=== PATIENT | male | born 1960 | race Caucasian/White ===

== ENCOUNTER 2017-09-20 12:15 | Observation (INO) ==
--- NOTE | 2017-09-20 12:25 | Emergency Department Note ---
Disposition Clinical Impression: Chest pain Qualifiers: Chest pain type: precordial pain Qualified Code(s): R07.2 - Precordial pain Disposition: Admitted As Inpatient Condition: Good Referrals: Ronny Haynes MD [Primary Care Provider] - Forms: ED Satisfaction Letter Time of Disposition: 16:20 Chest Pain HPI - General Chief Complaint: ED Chest Pain Stated Complaint: nausea,chest pressure, cold sweats Time Seen by Provider: 09/20/17 12:20 Source: patient Mode of arrival: EMS Limitations: no limitations Vital Signs Reviewed: Yes Nursing Notes Reviewed: Yes - History of Present Illness Pt complaint: chest pain Onset (ago): hour(s) (2.5) Time: 09:30 Duration: constant Onset: during rest Pain Location: substernal Severity scale (1-10): 2 Quality: tightness Pain Radiation: none Improves with: nothing Worsens with: nothing Associated symptoms: Reports: nausea Treatments prior to arrival chest pain: none - Related Data Home Medications Medication Instructions Recorded Confirmed Aspirin 81 mg PO DAILY 04/11/16 09/20/17 Albuterol Sulfate [Proair Hfa] 2 puff IH Q4H PRN 02/08/17 09/20/17 Atorvastatin Calcium [Lipitor] 80 mg PO HS 02/08/17 09/20/17 Cyclobenzaprine [Flexeril] 10 mg PO TID PRN 02/08/17 09/20/17 HYDROcodone/Acet 5/325 mg [[place] 1 tab PO BID PRN 02/08/17 09/20/17 5-325 mg] Lisinopril/Hydrochlorothiazide 1 each PO DAILY 02/08/17 09/20/17 [Zestoretic 10-12.5 mg Tablet] [place]-3/Dha/Epa/Fish Oil [Fish Oil 1,000 mg PO BID 02/08/17 09/20/17 1,000 mg Softgel] Pantoprazole Sodium 40 mg PO DAILY 02/08/17 09/20/17 hydrOXYzine HCl [Hydroxyzine HCl] 12.5 - 50 mg PO Q6H PRN 02/08/17 09/20/17 traZODone [TraZODone] 50 mg PO HS PRN 02/08/17 09/20/17 Allergies Allergy/AdvReac Type Severity Reaction Status Date / Time No Known Allergies Allergy Verified 09/20/17 12:17 All systems ED: reviewed and negative except as stated. Constitutional: Denies: fever, chills Eyes: Denies: vision change ENT ED: Denies: ear pain, throat pain Cardiovascular: Reports: chest pain. Denies: palpitations Respiratory: Denies: cough, dyspnea Gastrointestinal: Reports: nausea. Denies: abdominal pain, vomiting, diarrhea Musculoskeletal: Denies: back pain, neck pain Integumentary: Denies: rash Neurological: Denies: weakness, numbness, paresthesias Chest Pain PMH - Past Medical History Medical history: Reports: arthritis, GERD, hyperlipidemia, hypertension Surgical history: Reports: cholecystectomy, knee replacement, orthopedic, other Psychiatric history: Reports: anxiety, panic disorder, PTSD - Social History Smoking Status: Never smoker Alcohol use: Reports: none Drug use: Reports: none Physical Exam - General Limitations: no limitations General appearance: alert, in no apparent distress - Head Head exam: atraumatic, normocephalic - Eye Eye exam: Present: PERRL, EOMI. Absent: scleral icterus, conjunctival injection - ENT ENT exam: normal oropharynx, TM's normal bilaterally - Neck Neck exam: Present: normal inspection, full ROM, trachea midline. Absent: tenderness, lymphadenopathy, thyromegaly - Chest Chest inspection: Present: normal inspection, symmetric chest wall rise. Absent : tenderness - Respiratory Respiratory exam: Present: normal lung sounds bilaterally. Absent: respiratory distress, wheezes - Cardiovascular Cardiovascular exam: Present: regular rate, normal rhythm, normal heart sounds - Abdominal Exam Abdominal exam: Present: soft, Non-Tender, normal bowel sounds. Absent: organomegaly, mass - Extremities Exam Extremities exam: Present: normal inspection, full ROM, normal capillary refill. Absent: tenderness, pedal edema, calf tenderness - Neurological Exam Neurological exam: Present: alert, oriented X3, normal gait - Psychiatric Psychiatric exam: Present: normal affect, normal mood - Skin Skin exam: Present: warm, dry, intact, normal color. Absent: rash Course - Reevaluation(s) Reevaluation #1: Remained pain-free in the emergency department. Discussed with Dr. Martinez. He accepts for observation admission. Time: 16:19 Vital Signs Temperature 97.2 F L 09/20/17 12:20 Pulse Rate 65 09/20/17 12:20 Respiratory Rate 18 09/20/17 12:20 Blood Pressure 152/80 09/20/17 12:20 O2 Sat by Pulse Oximetry 94 09/20/17 12:20 Temperature 97.2 F L 09/20/17 12:20 Pulse Rate 87 09/20/17 15:35 Respiratory Rate 18 09/20/17 15:35 Blood Pressure 154/90 09/20/17 15:35 O2 Sat by Pulse Oximetry 95 09/20/17 15:35 Oxygen Delivery Oxygen Delivery Room Air Chest Pain - MDM Narrative Medical decision making narrative: Differential includes but is not limited to chest wall pain, angina, myocardial infarction, esophageal spasm, GERD, pneumothorax, aortic dissection. Clinically his pain is suspicious for angina. There is no evidence of N -STEMI or STEMI. He is not tachycardic, tachypnea or hypoxic. I have a low index suspicion for pulmonary embolus. There is no evidence of pneumonia or pneumothorax. He will be admitted to an observation bed for serial enzymes and possible stress testing as the hospitalist. - Lab Data Lab results reviewed: Yes I reviewed the patient's lab results. Result diagrams: 09/20/17 12:56 09/20/17 12:56 Lab Results 09/20/17 09/20/17 09/20/17 Range/Units 12:56 12:56 12:56 WBC 7.3 (4.3-11.1) K/mcL RBC 4.90 (4.19-5.50) M/mcL Hgb 15.4 (12.9-16.9) g/dL Hct 44.8 (37.5-50.1) % MCV 91.4 (83.0-100.0) fL MCH 31.4 (28.0-33.3) pg MCHC 34.4 (31.6-35.5) g/dL RDW 12.8 (11.5-14.5) % Plt Count 146 (140-400) K/mcL MPV 10.1 (9.4-12.4) fL Immature Gran % 0.3 (0-4) % Seg Neutrophils % 86.7 % Lymphocytes % 8.9 % Monocytes % 3.5 % Eosinophils % 0.3 % Basophils % 0.3 % Neutrophils # 6.4 (1.6-8.9) K/mcL Lymphocytes # 0.7 (0.6-4.6) K/mcL Monocytes # 0.3 (0.0-1.3) K/mcL Eosinophils # 0.0 (0.0-0.6) K/mcL Basophils # 0.0 (0.0-0.2) K/mcL Sodium 140 (136-145) mEq/L Potassium 3.8 (3.5-4.5) mEq/L Chloride 102 (98-109) mEq/L Carbon Dioxide 27 (19-29) mEq/L BUN 15 (8-26) mg/dL Creatinine 1.08 (0.72-1.25) mg/dL Est GFR ( Amer) > 60 (> 60) Est GFR (Non-Af Amer) > 60 (> 60) BUN/Creatinine Ratio 14 (6-26) Glucose 116 H (70-99) mg/dL Calculated Osmolality 292 (280-300) Calcium 9.3 (8.6-10.8) mg/dL Total Bilirubin 1.0 (0.2-1.2) mg/dL AST 29 (5-34) Units/L ALT 30 (0-55) Units/L Alkaline Phosphatase 84 (38-126) Units/L Troponin I 0.01 (0-0.03) ng/mL B-Natriuretic Peptide (0-100) pg/mL Serum Total Protein 7.4 (6.0-8.3) g/dL Albumin 4.0 (3.5-5.0) g/dL Globulin 3.4 (2.4-3.5) g/dL Albumin/Globulin Ratio 1.2 (1.1-2.2) 09/20/17 09/20/17 Range/Units 12:56 15:25 WBC (4.3-11.1) K/mcL RBC (4.19-5.50) M/mcL Hgb (12.9-16.9) g/dL Hct (37.5-50.1) % MCV (83.0-100.0) fL MCH (28.0-33.3) pg MCHC (31.6-35.5) g/dL RDW (11.5-14.5) % Plt Count (140-400) K/mcL MPV (9.4-12.4) fL Immature Gran % (0-4) % Seg Neutrophils % % Lymphocytes % % Monocytes % % Eosinophils % % Basophils % % Neutrophils # (1.6-8.9) K/mcL Lymphocytes # (0.6-4.6) K/mcL Monocytes # (0.0-1.3) K/mcL Eosinophils # (0.0-0.6) K/mcL Basophils # (0.0-0.2) K/mcL Sodium (136-145) mEq/L Potassium (3.5-4.5) mEq/L Chloride (98-109) mEq/L Carbon Dioxide (19-29) mEq/L BUN (8-26) mg/dL Creatinine (0.72-1.25) mg/dL Est GFR ( Amer) (> 60) Est GFR (Non-Af Amer) (> 60) BUN/Creatinine Ratio (6-26) Glucose (70-99) mg/dL Calculated Osmolality (280-300) Calcium (8.6-10.8) mg/dL Total Bilirubin (0.2-1.2) mg/dL AST (5-34) Units/L ALT (0-55) Units/L Alkaline Phosphatase (38-126) Units/L Troponin I 0.01 (0-0.03) ng/mL B-Natriuretic Peptide < 10 (0-100) pg/mL Serum Total Protein (6.0-8.3) g/dL Albumin (3.5-5.0) g/dL Globulin (2.4-3.5) g/dL Albumin/Globulin Ratio (1.1-2.2) - Radiology Data Radiology results reviewed: Yes I reviewed the patient's radiology results. Impressions Chest X-Ray 09/20/17 12:22 IMPRESSION: Slight to mild bibasilar atelectasis or less likely pneumonia. No other significant abnormality. D/ / Elton Cota MD / Elton Cota MD Interpreting Provider: Elton Cota MD - EKG Data EKG attestation: Yes I reviewed and interpreted this EKG. EKG results narrative: Sinus rhythm, rate of 63, interventricular conduction delay, no acute ST-T wave changes. Rhythm strip shows sinus rhythm with rate of 63, KS interval 200 ms, QRS 129 ms with no other ectopy is interpreted by me. Comparison date/, no significant change. 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
[2017-09-20] MEDS ORDERED: Aspirin 81 MG TAB.CHEW PO ONE (12:37)
[2017-09-20 13:04] LABS: Basophils % 0.3 %; Eosinophils % 0.3 %; Hematocrit 44.8 % (37.5-50.1); Hemoglobin 15.4 g/dL (12.9-16.9); Immature Granulocytes % 0.3 % (0-4); Lymphocytes # 0.7 K/mcL (0.6-4.6); Lymphocytes % 8.9 %; Mean Corpuscular HGB Conc 34.4 g/dL (31.6-35.5); Mean Corpuscular Hemoglobin 31.4 pg (28.0-33.3); Mean Corpuscular Volume 91.4 fL (83.0-100.0); Mean Platelet Volume 10.1 fL (9.4-12.4); Monocytes # 0.3 K/mcL (0.0-1.3); Monocytes % 3.5 %; Neutrophils # 6.4 K/mcL (1.6-8.9); Platelet Count 146 K/mcL (140-400); Red Cell Distribution Width 12.8 % (11.5-14.5); Segmented Neutrophils % 86.7 %
[2017-09-20 13:22] LABS: Alanine Aminotransferase 30 Units/L (0-55); Albumin/Globulin Ratio 1.2 (1.1-2.2); Alkaline Phosphatase 84 Units/L (38-126); Aspartate Amino Transferase 29 Units/L (5-34); BUN/Creatinine Ratio 14 (6-26); Blood Urea Nitrogen 15 mg/dL (8-26); Calcium 9.3 mg/dL (8.6-10.8); Carbon Dioxide 27 mEq/L (19-29); Chloride 102 mEq/L (98-109); Globulin 3.4 g/dL (2.4-3.5); Glucose 116 mg/dL (70-99); Osmolality,Calculated 292 (280-300); Potassium 3.8 mEq/L (3.5-4.5); Sodium 140 mEq/L (136-145); Total Protein 7.4 g/dL (6.0-8.3); eGFR For African Americans > 60 (> 60); eGFR For Non-African Americans > 60 (> 60)
[2017-09-20] MEDS ORDERED: Acetaminophen 325 MG TABLET PO PRN (17:09)
[2017-09-20] MEDS ORDERED: hydrOXYzine pamoate 25 MG CAPSULE PO PRN (17:09)
[2017-09-20] MEDS ORDERED: *HR* HYDROcodone/Acet 5/325 mg TABLET PO PRN (17:09)
[2017-09-20] MEDS ORDERED: *HR* Morphine 2 MG/ML SYRINGE IVP PRN (17:09)
[2017-09-20] MEDS ORDERED: Ondansetron 4 MG/2 ML VIAL IVP PRN (17:09)
[2017-09-20] MEDS ORDERED: Naloxone 0.4 MG/ML INJ IVP PRN (17:09)
[2017-09-20] MEDS ORDERED: *HR* OxyCODONE/APAP 5/325 TABLET PO PRN (17:49)
[2017-09-20] MEDS ORDERED: traZODone 50 MG TABLET PO PRN (21:00)
[2017-09-21] MEDS ORDERED: *HR* Enoxaparin 40 MG/0.4 ML SYRINGE SQ SCH (06:00)
[2017-09-21 06:47] VITALS: BP 145/92
[2017-09-21] MEDS ORDERED: Aspirin 81 MG TAB.CHEW PO SCH (09:00)
--- NOTE | 2017-09-21 11:29 | Internal Med History&Physical ---
Date of Encounter: 09/21/17 Time of Encounter: 10:55 Assessment and Plan (1) Chest pain Current visit: Yes Status: Acute Repeat cardiac enzymes were ordered through emergency room. Further workup will be done as needed. Qualifiers: Chest pain type: precordial pain Qualified Code(s): R07.2 - Precordial pain Internal Medicine - H&P: HPI Chief complaint: Chest discomfort Admitted From: Home Plans for Post Hospital Care: Home History of present illness: Mr. Crenshaw is a 57 year old male who came to emergency room stating he had onset of discomfort in his chest approximately 9:30 AM while at leisure. He describes the discomfort as a slight pressure sensation in his right chest that seemed to radiate toward midline. He had cold diaphoresis and a single episode of vomiting. He went to the health center at his place of work and was referred to emergency room. He was evaluated and felt deserve admission for ongoing care needs. He states his chest discomfort has resolved now and he feels back to his baseline and stable for discharge home. He reports a previous similar episode approximately 4 years ago and was told it was caused by PACs and/or PVCs. He does not get angina or anginal equivalents on exertion including splitting wood. He had a heart catheter 02/27/2013 at [facility] which showed LMCA free of disease, LAD with 20% stenosis in the proximal region 20% stenosis in the mid region, 30% stenosis in the mid circumflex, and 20% stenosis in the proximal RCA and another 20% stenosis lesion in the mid RCA. LVEF was 60%. He denies heart failure DVT or pulmonary embolus. He has history of hypertension and states blood pressure readings at home are typically 120-140 systolic and 75-85 diastolic. Past Med Surg Social Fam HX - Past Medical History Medical history: arthritis, GERD, hyperlipidemia, hypertension Psychiatric history: anxiety, panic disorder, PTSD - Past Surgical History Surgical History: cholecystectomy, knee replacement, orthopedic, other - Social History Smoking Status: Never smoker Smokeless Tobacco Status: Yes Alcohol use: none Drug use: none Internal Medicine - H&P: Meds Aspirin 81 mg PO DAILY 04/11/16 [History] Albuterol Sulfate [Proair Hfa] 2 puff IH Q4H PRN 02/08/17 [History] Atorvastatin Calcium [Lipitor] 80 mg PO HS 02/08/17 [History] Cyclobenzaprine [Flexeril] 10 mg PO TID PRN 02/08/17 [History] Lisinopril/Hydrochlorothiazide [Zestoretic 10-12.5 mg Tablet] 1 each PO DAILY [History] [place]-3/Dha/Epa/Fish Oil [Fish Oil 1,000 mg Softgel] 1,000 mg PO BID 02/08/17 [ History] Pantoprazole Sodium 40 mg PO DAILY 02/08/17 [History] hydrOXYzine HCl [Hydroxyzine HCl] 12.5 - 50 mg PO Q6H PRN 02/08/17 [History] traZODone [TraZODone] 50 mg PO HS PRN 02/08/17 [History] 3 Allergy/AdvReac Type Severity Reaction Status Date / Time No Known Allergies Allergy Verified 09/20/17 12:17 All Systems PM: A 10-system review of systems was performed and is negative for pertinent findings except as documented above in the HPI. Review of systems: Gen.: He states his weight has fluctuated approximately 10 pounds in the past year Cardiovascular: As per history of present illness Respiratory: He is a lifelong nonsmoker. He has occasional bronchitis. He has YAS and uses CPAP at bedtime GI: He has had cholecystectomy. He has been diagnosed with NAFLD. He uses occasional alcohol. He denies disorders of his exocrine pancreas : He denies hematuria dysuria or kidney stones Neurologic: He denies large distribution strokes or seizures. Endocrine: He has hyperlipidemia but denies diabetes or thyroid disease Hematology/oncology: Denies blood disorders cancers or anemia Psychiatric: He has anxiety and PTSD [place] skeletal: He has DJD. He has had multiple fractures. He has T1-T3 compression fractures in the past. He had left shoulder surgery and has had left knee replacement. - Constitutional Vitals: Temp Pulse Resp BP Pulse Ox 98.3 F 72 16 145/92 97 09/21/17 06:43 09/21/17 06:43 09/21/17 06:43 09/21/17 06:43 09/21/17 06:43 Exam: Gen.: He is a well developed well-nourished male who appears in no acute distress at present time HEENT: Head is atraumatic and normocephalic. Eyes: EOMI. There is no scleral icterus. Mouth: Mucosa is moist. Neck: Supple and nontender. There is no thyromegaly or adenopathy noted. Heart: Regular without murmurs gallops or ectopics Lungs: No wheezes or crackles are heard. Chest: He is not tender in his chest wall to palpation Abdomen: Soft and nontender. No masses or guarding are noted. Extremities: There is no cyanosis edema or clubbing noted. Dorsalis pedis and posttibial pulses are 1-2 over 2 bilaterally. Neurologic: Mental status: He is talkative and a good historian. Cranial nerves : Smile is symmetric. Forehead wrinkles bilaterally. Tongue protrudes midline. EOMI. Motor: There is no pronator drift. Cerebellar: Finger to nose intact bilaterally. Skin: Warm and dry Internal Med - H&P Results - Labs CBC & Chem 7: 09/20/17 12:56 09/20/17 12:56 Labs: Cardiac Enzymes 09/20/17 09/21/17 Range/Units 21:31 04:18 Troponin I 0.00 0.01 (0-0.03) ng/mL
--- NOTE | 2017-09-21 11:40 | Discharge Summary ---
Date of Encounter: 09/21/17 Time of Encounter: 10:55 - Discharge Diagnosis (1) Chest pain Priority: Primary Status: Resolved Qualifiers: Chest pain type: precordial pain Qualified Code(s): R07.2 - Precordial pain - Discharge Medications Prescriptions: Nitroglycerin [Nitrostat] 0.4 mg SL Q5M PRN #1 vial PRN Reason: Chest Pain Home Medications: Aspirin 81 mg PO DAILY 04/11/16 [History] Albuterol Sulfate [Proair Hfa] 2 puff IH Q4H PRN 02/08/17 [History] Atorvastatin Calcium [Lipitor] 80 mg PO HS 02/08/17 [History] Cyclobenzaprine [Flexeril] 10 mg PO TID PRN 02/08/17 [History] Lisinopril/Hydrochlorothiazide [Zestoretic 10-12.5 mg Tablet] 1 each PO DAILY [History] [place]-3/Dha/Epa/Fish Oil [Fish Oil 1,000 mg Softgel] 1,000 mg PO BID 02/08/17 [ History] Pantoprazole Sodium 40 mg PO DAILY 02/08/17 [History] hydrOXYzine HCl [Hydroxyzine HCl] 12.5 - 50 mg PO Q6H PRN 02/08/17 [History] traZODone [TraZODone] 50 mg PO HS PRN 02/08/17 [History] Nitroglycerin [Nitrostat] 0.4 mg SL Q5M PRN #1 vial 09/21/17 [Rx] Allergies/Adverse Reactions: 3 Allergy/AdvReac Type Severity Reaction Status Date / Time No Known Allergies Allergy Verified 09/20/17 12:17 Date of admission: 09/20/17 17:00 Primary care physician: Ronny Haynes MD - Patient Status Disposition: Home, Self-Care Condition: Good Functional capacity at discharge: independent ambulation Overall status at discharge: patient is progressing back to baseline - Discharge Instructions Follow Up With: Ronny Haynes MD [Primary Care Provider] - 1 week - Diet and Activity Activity: resume usual activities as tolerated Diet: advance to your usual diet Hospital course: Mr. Crenshaw is a 57 year old male who came to emergency room stating he had onset of discomfort in his chest approximately 9:30 AM while at leisure. He describes the discomfort as a slight pressure sensation in his right chest that seemed to radiate toward midline. He had cold diaphoresis and a single episode of vomiting. He went to the health center at his place of work and was referred to emergency room. He was evaluated and felt deserve admission for ongoing care needs. Initial orders were written by the emergency room physician. I saw him on September 21 and performed a history physical and discharge. Repeat cardiac enzymes showed no evidence of myocardial damage. The etiology of the chest pain was not determined with certainty. In view of his generally unremarkable heart catheter 4 years ago I was not convinced his pain was of myocardial ischemic origin from fixed stenosis. I felt was reasonable to give him a prescription for Nitrostat for prn use. His PCP can monitor his progress and order further workup as needed. He felt stable for discharge home which I felt was reasonable. He will follow with his PCP Dr. Ronny Haynes within 1 week. - Time Spent with Patient Total time spent providing and/or coordinating discharge services: - Constitutional Vitals: Temp Pulse Resp BP Pulse Ox 98.3 F 72 16 145/92 97 09/21/17 06:43 09/21/17 06:43 09/21/17 06:43 09/21/17 06:43 09/21/17 06:43
== END 2017-09-21 12:35 | disposition home or self-care (01) ==
LOC: INPPIK 12:15 → EMEROOPIK 12:15 → INPPIK 17:00
PROVIDERS: ADMIT Internal Medicine; ATTEND Internal Medicine